=== PATIENT | male | born 1960 | race Caucasian/White ===

== ENCOUNTER 2016-09-28 07:16 | Day surgery (SDC) | payer MEDICAID ==
[2016-09-28] MEDS ORDERED: LR 1,000 ML IV ONE (07:25)
[2016-09-28] MEDS ORDERED: LIDOCAINE 1% 2 ML INJ ID PRN (07:25)
--- NOTE | 2016-09-28 08:35 | PDANEPAE ---
ANE Past Medical History - Cardiovascular History Hx Hypertension: No Hx Arrhythmias: No Hx Chest Pain: No Hx Coronary Artery / Peripheral Vascular Disease: No Hx CHF / Valvular Disease: No Hx Palpitations: No - Pulmonary History Hx COPD: Yes Hx Asthma/Reactive Airway Disease: No Hx Recent Upper Respiratory Infection: No Hx Oxygen in Use at Home: No Hx Sleep Apnea: No Sleep Apnea Screening Result - Last Documented: Negative - Neurologic History Hx Cerebrovascular Accident: No Hx Seizures: No Hx Dementia: No - Endocrine History Hx Diabetes: No - Renal History Hx Renal Disorders: No - Liver History Hx Hepatic Disorders: No - Neurological & Psychiatric Hx Hx Neurological and Psychiatric Disorders: No - Cancer History Hx Cancer: No - Congenital Disorder History Hx Congenital Disorders: No - GI History Hx Gastrointestinal Disorders: Yes Gastrointestinal History Comment: hx of colonoscopies. ulcerative colitis - Other Health History Other Health History: lower partial denture - Chronic Pain History Chronic Pain: No - Surgical History Prior Surgeries: tonsillectomy in the 60's. colonoscopies ANE Review of Systems - Exercise capacity METS (RN): 4 METS ANE Patient History - Allergies Allergies/Adverse Reactions: No Known Allergies Allergy (Verified 01/26/16 14:43) - Home Medications Home Medications: Asacol Hd 01/26/16 [Last Taken 09/26/16] Multivitamin 09/07/16 [Last Taken 09/26/16] - NPO status NPO Since - Liquids (Date): 09/27/16 NPO Since - Liquids (Time): 22:00 NPO Since - Solids (Date): 09/27/16 NPO Since - Solids (Time): 09:00 - Smoking Hx Smoking Status: Heavy smoker - Family Anes Hx Family Hx Anesthesia Complications: none ANE Labs/Vital Signs - Vital Signs Blood Pressure: 128/82 Heart Rate: 73 Respiratory Rate: 16 O2 Sat (%): 95 Height: 170.18 cm Weight: 77.111 kg ANE Physical Exam - Airway Mallampati Score: Class 2 Mouth exam: poor dentition - ASA Status ASA Status: II
[2016-09-28] MEDS ORDERED: PROPOFOL/EMULSION 500 MG/50 ML BOTTLE IV ONE (08:36)
[2016-09-28] MEDS ORDERED: fentaNYL 100 MCG/2 ML INJ ONE (08:36)
[2016-09-28] MEDS ORDERED: LIDOCAINE 2% 5 ML SDV ONE (08:37)
--- NOTE | 2016-09-28 08:54 | PDGENHP ---
History & Physical Chief Complaint: hx polyps History of Present Illness: hx polyps removed piecemael Pertinent Past, Social, Family History: tob - ppd, etoh rare, adopted Relevant Physical Exam: cta, s1s2, rrr +BS, soft nt Cardiorespiratory Assessment: nml, s1 s2, rrr cta, class 2
--- NOTE | 2016-09-28 09:34 | POSTOPPROG ---
Post Op Note Date of Operation: 09/28/16 Surgeon: Tao Ponce Anesthesia: Other (Specify) (IV general) Pre-op Diagnosis: IBD colitis UC Post-op Diagnosis: active colitis scattered thru entier colon with relative rectal sparing Indication: UC Procedure: colon and bx Findings: actie scattered colitis with erosions Inf/Abcess present in the surg proc area at time of surgery?: No EBL: Minimal (few ml from bx) Total fluids administered: 200 Complications: none immediate
[2016-09-28] MEDS ORDERED: ACETAMINOPHEN 500 MG TAB PO PRN (09:35)
[2016-09-28] MEDS ORDERED: fentaNYL 100 MCG/2 ML INJ IVP PRN (09:35)
[2016-09-28] MEDS ORDERED: NALOXONE HCL 0.4 MG/ML INJ IVP PRN (09:35)
[2016-09-28] MEDS ORDERED: ONDANSETRON 4 MG/2 ML VIAL IVP PRN (09:35)
[2016-09-28] MEDS ORDERED: LR 500 ML IV PRN (09:35)
--- NOTE | 2016-09-28 09:35 | POSTANESTH ---
Post Anesthetic Evaluation Respiratory Status: Similar to Pre-op Cond. Level of Consciousness/Mental Status: Alert and Oriented Pain Control: Adequate, Prn Tx Ordered Nausea/Vomiting Control: Adequate, Prn Tx Ordered Complications Possibly Related to Anesthesia: None Noted
[2016-09-28 09:43] VITALS: PULSE 71; TEMP 97.7
[2016-09-28 09:45] VITALS: RESP 14
[2016-09-28 10:44] VITALS: BP 117/83; O2SAT 94
--- NOTE | 2016-09-28 20:34 | GPN ---
[f rep st] PROCEDURE NOTE DATE OF PROCEDURE: 09/28/2016 PROCEDURE: Colonoscopy and biopsy. INDICATION: Surveillance for ulcerative colitis. PREOPERATIVE DIAGNOSES: 1. Rule out active disease. 2. Rule out dysplasia. POSTOPERATIVE DIAGNOSES: 1. Scattered areas of active colitis throughout the entire colon with areas of erosions. The major ity of colon had no significant inflammation. 2. Terminal ileum was normal. 3. No polyps noted. INFORMED CONSENT: I had a detailed discussion with the patient regarding the procedure, alternative s, benefits, and risks including bleeding, perforation, infection, risk of medication. Informed con sent was signed and witnessed. MEDICATIONS USED: IV general by Dr. Otero. DESCRIPTION OF PROCEDURE: Patient was placed in the left lateral decubitus position. After adequat e sedation, I performed a visual and digital anorectal examination. The video colonoscope was inser siobhan via the rectum and advanced under visualization to the terminal ileum. Upon withdrawal of the i nstrument, careful attention was paid to mucosal detail. The prep was very good. He had scattered areas of erosions throughout the entire colon. There were no significant ulcerations. The majority of the colonic mucosa was normal without erythema, erosions or colitis. I performed random biopsie s, separate jars into right and left colon. I performed 4 biopsies every 5-10 cm. I did not note a ny polyps. I did not note any previous Shea Ink marlon from his previous colonoscopy. Retroflexed e xamination was performed. The rectum was relatively spared. The endoscope was then unretroflexed, advanced back into the proximal colon and air was withdrawn. The endoscope was then completely with drawn, confirming the above findings. The patient tolerated the procedure well and was transferred to the recovery room in satisfactory co ndition. IMPRESSION: 1. Scattered active colitis with erosions throughout the entire colon with relative rectal sparing. 2. The majority of the colonic mucosa was normal without erythema, with normal vascular pattern but with the scattered erosions. 3. The terminal ileum was normal. RECOMMENDATIONS: 1. Follow up biopsies. 2. Steroid burst of 40 mg starting with a taper of 10 mg per week until he is down at 10, then decr ease to 5 mg for 1 week, then 5 mg alternating with nothing for 1 week and then off. 3. Increase Asacol back to 3 tablets p.o. t.i.d. 4. Follow up with myself in the office in 8-12 weeks. 5. Follow up with primary care physician as scheduled. 6. Surveillance colonoscopy within 1 year to be determined by results of biopsies. Thank you for allowing me to participate in this patient's health care. Do not hesitate to call me with any questions. /[id number]/MODL
== END 2016-09-28 10:30 | disposition home or self-care (01) ==
LOC: FSGY 07:16
PROVIDERS: ATTEND Internal Medicine Gastroenterology
PROC: 0DBG8ZZ Excision of Left Large Intestine, Via Natural or Artificial Opening Endoscopic (ICD-10-PCS; principal; 2016-09-28 09:00)
PROC: 0DBF8ZZ Excision of Right Large Intestine, Via Natural or Artificial Opening Endoscopic (ICD-10-PCS; principal; 2016-09-28 09:00)
PROC: 0DJD8ZZ Inspection of Lower Intestinal Tract, Via Natural or Artificial Opening Endoscopic (ICD-10-PCS; principal; 2016-09-28 09:00)
DX: K51.80 Other ulcerative colitis without complications (principal); Z86.010 Personal history of colon polyps; F17.210 Nicotine dependence, cigarettes, uncomplicated
CPT/HCPCS: J2704; J3010

== ENCOUNTER 2018-02-14 11:16 | Day surgery (SDC) | payer MEDICAID ==
[2018-02-14] MEDS ORDERED: NS 500 ML IV ONE (11:44)
[2018-02-14] MEDS ORDERED: MIDAZOLAM 2 MG/2 ML VIAL ONE ×2 (12:50→13:05)
[2018-02-14] MEDS ORDERED: fentaNYL 100 MCG/2 ML INJ ONE (12:50)
--- NOTE | 2018-02-14 12:52 | PDPROPOC ---
Sedation Plan of Care Sedation Plan of Care: vital signs stable, mental status noted, patient educated of risks, benefits, alternatives, patient can tolerate sedation ASA Classification: ASA 2 Planned drugs: fentanyl, midazolam Mallampati Score: Class 2 Mallampati Reference Image: Patient passed 3-3-2 rule?: Yes
--- NOTE | 2018-02-14 12:52 | PDGENHP ---
History & Physical Chief Complaint: UC History of Present Illness: left sided UC Pertinent Past, Social, Family History: FHx - adopted. tobacco - 1 ppd. alcohol - not anymore. hx UC Relevant Physical Exam: A+Ox3. CTA. S1S2. +BS, soft Cardiorespiratory Assessment: class 2
--- NOTE | 2018-02-14 13:18 | GIREPORT ---
[facility] Surgical Services - Endoscopy Department Patient Name: Blayne Alba Procedure Date: 02/14/2018 12:54 PM Patient Type: Outpatient Attending MD/ ER Physician: Arabella Fraire Procedure: Flexible Sigmoidoscopy Indications: Disease activity assessment of left-sided chronic ulcerative colitis Providers: Tao Ponce MD Referring MD: Blayne York MD Medicines: Fentanyl 100 micrograms IV, Midazolam 6 mg IV Complications: No immediate complications. Estimated blood loss: Minimal. Description of Procedure: After obtaining informed consent, the endoscope was passed under direct vision. Throughout the procedure, the patient's blood pressure, pulse, and oxygen saturations were monitored continuously. The Colonoscope was introduced through the anus and advanced to the descending colon. The flexible sigmoidoscopy was accomplished without difficulty. The patient tolerated the procedure well. The quality of the bowel preparation was good. Findings: The digital rectal exam was normal. The rectum and sigmoid colon appeared normal. Biopsies were taken with a cold forceps for histology. Estimated blood loss was minimal. Two sessile polyps were found in the rectum. The polyps were 3 mm in si ze. These polyps were removed with a piecemeal technique using a cold biops y forceps. Resection and retrieval were complete. Estimated blood loss wa s minimal. The exam was otherwise without abnormality. Estimated Blood Loss: Estimated blood loss was minimal. Post Op Diagnosis: - The rectum and sigmoid colon are normal. Biopsied. - Two 3 mm polyps in the rectum, removed piecemeal using a cold biopsy forceps. Resected and retrieved. - The examination was otherwise normal. Recommendation: - Await pathology results. - My office will call with the pathology result with 5-7 days. If you h ave not heard from my office by 12-14, do not assume the pathology is jerson l, please call [phone] to get the pathology reults. - Continue present medications. - Discharge patient to home (ambulatory). - Return to endoscopist as previously scheduled. - Return to primary care physician as previously scheduled. - Thank you for allowing me to help in your patient's care. Do not hesi alegria to call with any questions. Attending Participation: I personally performed the entire procedure. Kris Mathews M.D Reid Ponce MD 02/14/2018 1:17:43 PM This report has been signed electronicallyMathew MD Kris Number of Addenda: 0 Note Initiated On: 02/14/2018 12:54 PM Total Procedure Duration Time 0 hours 4 minutes 35 seconds [email or web address]
[2018-02-14 14:11] VITALS: BP 101/77
== END 2018-02-14 14:05 | disposition home or self-care (01) ==
LOC: FSGY 11:16
PROVIDERS: ATTEND Internal Medicine Gastroenterology
DX: K51.90 Ulcerative colitis, unspecified, without complications (principal); Z86.010 Personal history of colon polyps
CPT/HCPCS: J2250; J3010